=== PATIENT | female | born 1950 | race Caucasian/White ===

== ENCOUNTER 2018-09-13 20:29 | Inpatient (IN) | payer OTHER, MEDICAID ==
[~2018-09-13] VITALS: Ht 152.4 cm; Wt 54.4 kg
[~2018-09-13 20:29] MED LIST: ASPI-1159 PO; CHOL100044 PO; LORA10TA7 PO; MONT10TA24 PO
[2018-09-13] MEDS ORDERED: ONDANSETRON HCL 4MG/2ML INJ IV STA (21:01)
[2018-09-13 22:03] LABS: BASOPHILS % 0.1 % (0.0-2.0); EOSINOPHILS % 0.4 % (0.0-5.0); HEMATOCRIT. 43.5 % (36.0-48.0); HEMOGLOBIN. 14.7 g/dL (12.0-16.0); LYMPHOCYTES % 16.2 % (20.0-50.0); MEAN CORPUSCULAR HEMOGLOBIN 32.2 pg (28.0-32.0); MEAN CORPUSCULAR VOLUME 95.7 fL (81.0-99.0); MEAN PLATELET VOLUME 8.7 fl (7.4-10.4); MONOCYTES % 9.9 % (2.0-8.0); NEUTROPHILS % 73.4 % (40.0-76.0); PLATELET 331 x1000/uL (130-400); RED BLOOD CELL COUNT 4.55 mill/uL (4.2-5.4); RED CELL DISTRIBUTION WIDTH 12.5 % (11.6-14.6)
[2018-09-13 22:07] LABS: CHLORIDE 99 mEq/L (98-107)
[2018-09-13] MEDS ORDERED: SODIUM CHLORIDE 0.9% 1,000 ML IV NR (23:41)
[2018-09-14] VITALS (7 sets, daily range): BP systolic 115–145; BP diastolic 54–89
[2018-09-14] MEDS ORDERED: IOHEXOL-300 100 ML BOTTLE ONE (01:24)
[2018-09-14] MEDS ORDERED: LORAZEPAM 2MG/ML CPJ IV PRN (01:45)
[2018-09-14] MEDS ORDERED: ONDANSETRON HCL 4MG/2ML INJ IV PRN (01:45)
[2018-09-14] MEDS ORDERED: IPRATROPIUM/ALBUTEROL 0.5-3(2.5)MG/3ML NEB INH PRN (01:45)
[2018-09-14] MEDS ORDERED: CLONIDINE 0.1MG TABLET PO PRN (01:45)
[2018-09-14] MEDS ORDERED: NA PHOS,M-B/NA PHOS,DI-BA ENEMA 118ML PR PRN (01:45)
[2018-09-14] MEDS ORDERED: ACETAMINOPHEN 325MG TABLET PO PRN (01:45)
[2018-09-14] MEDS ORDERED: MAGNESIUM/ALUMINUM HYDROXIDE/SIMETHICONE 30ML UDC PO PRN (01:45)
[2018-09-14] MEDS ORDERED: HYDRALAZINE 20MG/ML VIAL IV PRN (01:45)
[2018-09-14] MEDS ORDERED: HYDROMORPHONE HCL/PF 2MG/ML CPJ IV PRN (01:45)
[2018-09-14] MEDS ORDERED: DIPHENHYDRAMINE 50MG/ML VIAL IV PRN (01:45)
[2018-09-14] MEDS: METHYLPREDNISOLONE SOD SUCC 125 MG/2 ML VIAL IV SCH ×4 (02:59→20:16)
[2018-09-14] MEDS ORDERED: LACT1TAB22 PO (03:48)
[2018-09-14] MEDS ORDERED: FURO-152 PO (03:48)
[2018-09-14] MEDS ORDERED: LEVO50TA8 PO (03:48)
[2018-09-14] MEDS ORDERED: GUAI600T88 PO (03:48)
[2018-09-14] MEDS ORDERED: OMEP20CA10 PO (03:48)
[2018-09-14] MEDS ORDERED: ACET-2178 PO (03:48)
[2018-09-14] MEDS ORDERED: P20 PO (03:48)
[2018-09-14] MEDS ORDERED: MULT-26 PO (03:48)
[2018-09-14] MEDS: SODIUM CHLORIDE 0.9% INJ 3ML FLUSH IVF SCH ×3 (05:24→21:21)
[2018-09-14 08:11] LABS: CREATINE KINASE 58 IU/L (26-192)
[2018-09-14 08:13] LABS: CREATINE KINASE MB FRACTION 2.3 ng/mL (0.5-3.6)
[2018-09-14] MEDS: ASPIRIN 81MG EC TABLET PO SCH (09:46)
[2018-09-14] MEDS: GUAIFENESIN 200MG/10ML SUGAR FREE UDC PO PRN ×2 (09:47→14:18)
[2018-09-14] MEDS: ENOXAPARIN 40MG/0.4ML SYR SUBCUT SCH (09:47)
[2018-09-14 18:38] LABS: CREATINE KINASE 36 IU/L (26-192)
[2018-09-14 18:39] LABS: CREATINE KINASE MB FRACTION 1.7 ng/mL (0.5-3.6)
[2018-09-15] VITALS (7 sets, daily range): BP systolic 112–125; BP diastolic 48–63
[2018-09-15] MEDS: METHYLPREDNISOLONE SOD SUCC 125 MG/2 ML VIAL IV SCH ×4 (03:16→21:20)
[2018-09-15] MEDS: SODIUM CHLORIDE 0.9% INJ 3ML FLUSH IVF SCH ×3 (05:49→21:24)
[2018-09-15 06:57] LABS: BASOPHILS % 0.2 % (0.0-2.0); HEMATOCRIT. 37.6 % (36.0-48.0); HEMOGLOBIN. 12.8 g/dL (12.0-16.0); LYMPHOCYTES % 7.6 % (20.0-50.0); MEAN CORPUSCULAR HEMOGLOBIN 32.1 pg (28.0-32.0); MEAN CORPUSCULAR VOLUME 94.7 fL (81.0-99.0); MEAN PLATELET VOLUME 8.7 fl (7.4-10.4); MONOCYTES % 2.2 % (2.0-8.0); PLATELET 301 x1000/uL (130-400); RED BLOOD CELL COUNT 3.97 mill/uL (4.2-5.4); RED CELL DISTRIBUTION WIDTH 12.5 % (11.6-14.6)
[2018-09-15 07:02] LABS: CHLORIDE 102 mEq/L (98-107)
[2018-09-15] MEDS: ENOXAPARIN 40MG/0.4ML SYR SUBCUT SCH (09:13)
[2018-09-15] MEDS: ASPIRIN 81MG EC TABLET PO SCH (09:13)
[2018-09-15] MEDS: GUAIFENESIN 200MG/10ML SUGAR FREE UDC PO PRN ×3 (09:13→21:21)
[2018-09-15] MEDS: DOCUSATE SODIUM 100MG CAPSULE PO PRN ×2 (09:16→18:48)
[2018-09-15] MEDS: HYDROCODONE/ACETAMINOPHEN 10/325MG TABLET PO PRN (21:24)
[2018-09-16] VITALS: BP 142/61
[2018-09-16 04:00] VITALS: BP 128/56
[2018-09-16] MEDS: METHYLPREDNISOLONE SOD SUCC 125 MG/2 ML VIAL IV SCH ×2 (05:11→08:59)
[2018-09-16] MEDS: GUAIFENESIN 200MG/10ML SUGAR FREE UDC PO PRN (05:11)
[2018-09-16] MEDS: HYDROCODONE/ACETAMINOPHEN 10/325MG TABLET PO PRN (05:13)
[2018-09-16] MEDS: SODIUM CHLORIDE 0.9% INJ 3ML FLUSH IVF SCH (05:14)
[2018-09-16 08:00] VITALS: BP 126/64
[2018-09-16] MEDS: ENOXAPARIN 40MG/0.4ML SYR SUBCUT SCH (09:00)
[2018-09-16] MEDS: ASPIRIN 81MG EC TABLET PO SCH (09:00)
[2018-09-16 12:00] VITALS: BP 116/73
== END 2018-09-16 16:15 | disposition home or self-care (01) | DRG 206 ==
LOC: ER 20:29 → 8WST 23:37 → EDBEDREQ 23:41 → EDBEDREQTM 23:41 → ENRESERV 09-14 00:18 → CANRESERV 09-14 00:18
PROVIDERS: ADMIT Internal Medicine; ATTEND Internal Medicine
DX: M94.0 Chondrocostal junction syndrome [Tietze] (principal); K56.609 Unspecified intestinal obstruction, unspecified as to partial versus complete obstruction; E03.9 Hypothyroidism, unspecified; J44.9 Chronic obstructive pulmonary disease, unspecified; Z79.890 Hormone replacement therapy; Z90.710 Acquired absence of both cervix and uterus; Z93.3 Colostomy status; Z79.82 Long term (current) use of aspirin; Z79.899 Other long term (current) drug therapy; Z90.49 Acquired absence of other specified parts of digestive tract; Z85.41 Personal history of malignant neoplasm of cervix uteri; Z92.21 Personal history of antineoplastic chemotherapy
CPT/HCPCS: 36415; 71045; 74018; 74177; 82550; 82553; 83605; 83880; 84484; 93005; 94640; 96374; 99285; A6261; J1650; J2405; J2930; Q9967

== ENCOUNTER 2019-01-10 05:21 | Inpatient (IN) | payer OTHER, MEDICAID ==
[~2019-01-10] VITALS: Ht 144.8 cm; Wt 55.8 kg
[~2019-01-10 05:21] MED LIST changes: +ACET-2178 PO; +FURO-152 PO; +GUAI600T88 PO; +LACT1TAB22 PO; +LEVO50TA8 PO; +MULT-26 PO; +OMEP20CA10 PO; +P20 PO
[2019-01-10] MEDS ORDERED: ONDANSETRON HCL 4MG/2ML INJ IV STA (06:27)
[2019-01-10] MEDS ORDERED: SODIUM CHLORIDE 0.9% 1,000 ML IV ONE (06:27)
[2019-01-10] MEDS ORDERED: MORPHINE SULFATE 4 MG/ML CPJ (NOT FOR IM USE) IV STA (06:27)
[2019-01-10 06:41] LABS: CHLORIDE 103 mEq/L (98-107)
[2019-01-10 06:42] LABS: BASOPHILS % 0.3 % (0.0-2.0); EOSINOPHILS % 0.1 % (0.0-5.0); HEMOGLOBIN. 15.8 g/dL (12.0-16.0); LYMPHOCYTES % 14.7 % (20.0-50.0); MEAN CORPUSCULAR HEMOGLOBIN 31.9 pg (28.0-32.0); MEAN CORPUSCULAR VOLUME 94.9 fL (81.0-99.0); MEAN PLATELET VOLUME 9.4 fl (7.4-10.4); MONOCYTES % 10.9 % (2.0-8.0); PLATELET 221 x1000/uL (130-400); RED BLOOD CELL COUNT 4.95 mill/uL (4.2-5.4); RED CELL DISTRIBUTION WIDTH 13.3 % (11.6-14.6)
[2019-01-10 06:46] LABS: PROTHROMBIN TIME 10.2 sec (9.6-11.0)
[2019-01-10 16:00] VITALS: BP 103/47
[2019-01-10 18:00] VITALS: BP 103/47
[2019-01-10 20:00] VITALS: BP 103/61
[2019-01-10] MEDS ORDERED: LORAZEPAM 2MG/ML CPJ IV PRN (20:00)
[2019-01-10] MEDS ORDERED: IPRATROPIUM/ALBUTEROL 0.5-3(2.5)MG/3ML NEB INH PRN (20:00)
[2019-01-10] MEDS ORDERED: HYDROMORPHONE HCL/PF 2MG/ML CPJ IV PRN (20:00)
[2019-01-10] MEDS ORDERED: DIPHENHYDRAMINE 50MG/ML VIAL IV PRN (20:00)
[2019-01-10] MEDS ORDERED: KETOROLAC 30MG/ML VIAL IV PRN (20:00)
[2019-01-10] MEDS ORDERED: MAGNESIUM/ALUMINUM HYDROXIDE/SIMETHICONE 30ML UDC PO PRN (20:00)
[2019-01-10] MEDS ORDERED: ONDANSETRON HCL 4MG/2ML INJ IV PRN (20:00)
[2019-01-10] MEDS ORDERED: PNEUMOCOCCAL 23-VAL P-SAC VAC 0.5 ML IM ONE (21:00)
[2019-01-10] MEDS: PANTOPRAZOLE SODIUM 40 MG/VIAL IV SCH (21:23)
[2019-01-10] MEDS: SODIUM CHLORIDE 0.9% 1,000 ML IV SCH (21:25)
[2019-01-10] MEDS ORDERED: POTASSIUM CHLORIDE INJ 40 MEQ in DEXT 5% WATER 250 ML IV NR (21:30)
[2019-01-10] MEDS: ENOXAPARIN 40MG/0.4ML SYR SUBCUT SCH (21:34)
[2019-01-10] MEDS ORDERED: PRED5TAB48 PO (23:49)
[2019-01-11] VITALS: BP 123/69
[2019-01-11] MEDS: IPRATROPIUM/ALBUTEROL 0.5-3(2.5)MG/3ML NEB HHN SCH ×4 (02:39→21:03)
[2019-01-11 04:00] VITALS: BP 106/47
[2019-01-11] MEDS: SODIUM CHLORIDE 0.9% 1,000 ML IV SCH ×2 (05:47→13:01)
[2019-01-11 07:15] LABS: HEMATOCRIT. 38.2 % (36.0-48.0); HEMOGLOBIN. 12.8 g/dL (12.0-16.0); MEAN CORPUSCULAR HEMOGLOBIN 32.2 pg (28.0-32.0); MEAN CORPUSCULAR VOLUME 95.8 fL (81.0-99.0); MEAN PLATELET VOLUME 9.2 fl (7.4-10.4); PLATELET 163 x1000/uL (130-400); RED BLOOD CELL COUNT 3.99 mill/uL (4.2-5.4); RED CELL DISTRIBUTION WIDTH 13.1 % (11.6-14.6)
[2019-01-11 07:39] LABS: CHLORIDE 110 mEq/L (98-107)
[2019-01-11 07:46] LABS: PHOSPHORUS 2.6 mg/dL (2.5-4.9)
[2019-01-11 07:59] LABS: CLARITY URINE CLEAR (CLEAR); COLOR URINE DARK YELLOW (YELLOW); KETONES URINE TRACE (NEGATIVE); LEUKOCYTE ESTERASE URINE NEGATIVE (NEGATIVE); NITRITE URINE NEGATIVE (NEGATIVE); OCCULT BLOOD URINE NEGATIVE (NEGATIVE); PROTEIN URINE NEGATIVE (NEGATIVE)
[2019-01-11 08:00] VITALS: BP 100/42
[2019-01-11] MEDS: PANTOPRAZOLE SODIUM 40 MG/VIAL IV SCH (10:24)
[2019-01-11 10:37] LABS: PLATELET ESTIMATE NORMAL
[2019-01-11 12:00] VITALS: BP 110/62
[2019-01-11 16:00] VITALS: BP 112/66
[2019-01-11 20:00] VITALS: BP 115/40
[2019-01-11] MEDS: ENOXAPARIN 40MG/0.4ML SYR SUBCUT SCH (20:12)
[2019-01-12] VITALS (7 sets, daily range): BP systolic 106–156; BP diastolic 42–67
[2019-01-12] MEDS: SODIUM CHLORIDE 0.9% 1,000 ML IV SCH (01:45)
[2019-01-12] MEDS: IPRATROPIUM/ALBUTEROL 0.5-3(2.5)MG/3ML NEB HHN SCH ×4 (02:27→20:34)
[2019-01-12] MEDS: FAMOTIDINE 20MG/2ML VIAL IV SCH (09:19)
[2019-01-12] MEDS: GUAIFENESIN 200MG/10ML SUGAR FREE UDC PO PRN ×2 (09:19→15:51)
[2019-01-12] MEDS ORDERED: IPRATROPIUM/ALBUTEROL 0.5-3(2.5)MG/3ML NEB HHN PRN (09:30)
[2019-01-12] MEDS: ACETAMINOPHEN 325MG TABLET PO PRN ×2 (10:35→15:51)
[2019-01-12] MEDS: ENOXAPARIN 40MG/0.4ML SYR SUBCUT SCH (21:21)
[2019-01-13] VITALS: BP 138/51
[2019-01-13] MEDS: GUAIFENESIN 200MG/10ML SUGAR FREE UDC PO PRN ×2 (00:25→08:25)
[2019-01-13 04:00] VITALS: BP 126/55
[2019-01-13 08:00] VITALS: BP 145/60
[2019-01-13] MEDS: FAMOTIDINE 20MG/2ML VIAL IV SCH (08:21)
[2019-01-13] MEDS: IPRATROPIUM/ALBUTEROL 0.5-3(2.5)MG/3ML NEB HHN SCH ×3 (08:49→19:55)
[2019-01-13 12:00] VITALS: BP 148/51
[2019-01-13] MEDS: ACETAMINOPHEN 325MG TABLET PO PRN (13:40)
[2019-01-13] MEDS ORDERED: LEVOFLOXACIN 500MG PREMIX 100 ML IV SCH (15:00)
[2019-01-13 16:00] VITALS: BP 107/47
[2019-01-13 16:25] LABS: CLARITY URINE CLEAR (CLEAR); COLOR URINE YELLOW (YELLOW); KETONES URINE NEGATIVE (NEGATIVE); LEUKOCYTE ESTERASE URINE NEGATIVE (NEGATIVE); NITRITE URINE NEGATIVE (NEGATIVE); OCCULT BLOOD URINE NEGATIVE (NEGATIVE); PH URINE 7.5 (4.5-8.0); PROTEIN URINE NEGATIVE (NEGATIVE); SPECIFIC GRAVITY URINE 1.011 (1.005-1.030); UROBILINOGEN URINE 0.2 E.U./dL (0.2-1.0)
[2019-01-13 20:00] VITALS: BP 100/54
[2019-01-13] MEDS: ENOXAPARIN 40MG/0.4ML SYR SUBCUT SCH (21:10)
[2019-01-14] VITALS: BP 98/40
[2019-01-14] MEDS: GUAIFENESIN 200MG/10ML SUGAR FREE UDC PO PRN (00:24)
[2019-01-14] MEDS: IPRATROPIUM/ALBUTEROL 0.5-3(2.5)MG/3ML NEB HHN SCH ×3 (01:57→13:44)
[2019-01-14 04:00] VITALS: BP 100/55
[2019-01-14 08:00] VITALS: BP 122/50
[2019-01-14] MEDS: FAMOTIDINE 20MG/2ML VIAL IV SCH (08:48)
[2019-01-14 12:00] VITALS: BP 121/69
[2019-01-14 13:47] VITALS: BP 121/69
[2019-01-14] MEDS ORDERED: LEVOFLOXACIN 250MG PREMIX 50 ML IV SCH (15:00)
[2019-01-14 16:00] VITALS: BP 112/55
== END 2019-01-14 17:15 | disposition home or self-care (01) | DRG 202 ==
LOC: ER 05:21 → 8WST 09:22 → EDBEDREQTM 09:53 → EDBEDREQ 09:53 → CANRESERV 09:56 → ENRESERV 09:56 → EDBEDREQTM 13:06 → ENRESERV 13:21 → ER 14:36 → 8WST 15:43
PROVIDERS: ADMIT Internal Medicine; ATTEND Internal Medicine
DX: J45.901 Unspecified asthma with (acute) exacerbation (principal); K56.7 Ileus, unspecified; J44.0 Chronic obstructive pulmonary disease with (acute) lower respiratory infection; J20.9 Acute bronchitis, unspecified; E87.6 Hypokalemia; E78.00 Pure hypercholesterolemia, unspecified; I10 Essential (primary) hypertension; J44.9 Chronic obstructive pulmonary disease, unspecified; Z83.3 Family history of diabetes mellitus; Z90.49 Acquired absence of other specified parts of digestive tract; Z90.710 Acquired absence of both cervix and uterus; Z93.3 Colostomy status; Z79.82 Long term (current) use of aspirin; Z79.899 Other long term (current) drug therapy; Z79.890 Hormone replacement therapy
CPT/HCPCS: 36415; 71045; 74018; 74176; 83735; 84100; 84484; 87493; 90732; 93005; 96361; 96374; 96375; 99285; C9113; J1200; J1650; J1885; J1956; J2270; J2405; J3480; J3490; J7030; J7050; J7060; J7620